=== PATIENT | female | born 1965 | race Two or more races ===

== ENCOUNTER 2016-10-17 09:06 | Outpatient (CLI) | payer OTHER ==
--- NOTE | 2016-10-17 12:16 | Diagnostic Imaging Report ---
Indication: Abdominal pain Technique: Mcdonough-scale and duplex images of the upper abdomen were obtained Comparison: None Findings: Gallbladder demonstrates gallstones. There is no gallbladder wall thickening, but technologist reports positive sonographic Colbert's sign. Common bile duct measures 5 mm in diameter. No intrahepatic biliary ductal dilatation. Liver demonstrates diffusely increased echogenicity, consistent with diffuse hepatocellular disease, most likely fatty change. No focal abnormality is demonstrated. There is no hepatic surface nodularity Portal vein and hepatic veins are patent. Pancreas is unremarkable. The spleen is enlarged, measuring 17 cm long axis dimension. Left kidney measures 12.5 cm in length. Right kidney measures of 0.8 cm length. Both kidneys demonstrate normal echogenicity. There is no hydronephrosis. No focal abnormality . Abdominal aorta is partially obscured by bowel gas, visualized portions are non-aneurysmal . Impression: Cholelithiasis. Positive sonographic Colbert's sign raises concern for acute cholecystitis. Correlate with clinical findings, consider hepatobiliary nuclear scan for further migration as clinically indicated Splenomegaly Liver demonstrates diffusely increased echogenicity, consistent with diffuse hepatocellular disease, most likely fatty change. Note incomplete visualization of the distal abdominal aorta
== END 2016-10-17 11:06 | disposition home or self-care (01) ==
LOC: ULS 09:06 → EDSTATUS 10:00 → ULS 11:06
DX: K80.20 Calculus of gallbladder without cholecystitis without obstruction (principal); R16.1 Splenomegaly, not elsewhere classified
CPT/HCPCS: 76700